=== PATIENT | male | born 1945 | race Caucasian/White ===

== ENCOUNTER 2022-10-24 01:00 | Emergency (ER) | payer MEDICARE ==
[~2022-10-24] VITALS: Ht 182.9 cm; Wt 72.6 kg
--- NOTE | 2022-10-24 01:09 | NUR ---
PT EDIN KIDD. TAKEN TO BED 11
[2022-10-24 01:11] VITALS: BP 154/68; PULSE 89; RESP 22; TEMP 98.1; O2SAT 97
[2022-10-24] MEDS ORDERED: LIDOCAINE 1% 500 MG/ 50 ML VIAL INJ ONE (01:20)
[2022-10-24] MEDS ORDERED: LIDOCAINE MPF 1% 10 ML ONE (01:25)
[2022-10-24] MEDS ORDERED: KETOROLAC 15 MG/ML VIAL IM ONE (01:35)
[2022-10-24] MEDS ORDERED: BACITRACIN OINT 500 UNITS/GM PKT TP ONE (02:40)
[2022-10-24] MEDS ORDERED: oxyCODONE 10 MG TABER PO ONE (02:45)
--- NOTE | 2022-10-24 02:51 | NUR ---
pt CT via [place]
--- NOTE | 2022-10-24 05:00 | NUR ---
VENANCIO MD at bedside re-examining patient.
--- NOTE | 2022-10-24 05:06 | NUR ---
xr at bedside
--- NOTE | 2022-10-24 05:13 | NUR ---
pt to CT via [facility]
--- NOTE | 2022-10-24 05:45 | NUR ---
pt 10 out 10 back pain. ermd made aware with no orders made.
--- NOTE | 2022-10-24 07:21 | NUR ---
Pt report given to Veena BELTRAN. Transfer of care at this time.
--- NOTE | 2022-10-24 07:23 | NUR ---
Report revieved from Marya, RN for transfer of care.
--- NOTE | 2022-10-24 08:52 | NUR ---
Patient was made clean and offered a urinal. Call light is within reach.
--- NOTE | 2022-10-24 09:11 | NUR ---
Patient is reporting an 10/10 pain to hip. ERMD made aware.
--- NOTE | 2022-10-24 09:53 | NUR ---
Dr. Bae evaluating patient at bedside.
[2022-10-24 10:40] VITALS: TEMP 96.5
--- NOTE | 2022-10-24 11:06 | NUR ---
Patient is laying in bed, call light is within reach. All needs met by staff.
[2022-10-24 12:40] VITALS: BP 147/51; PULSE 55; RESP 19; O2SAT 99
--- NOTE | 2022-10-24 12:40 | NUR ---
Patient discharged with v/s stable. Written and verbal after care instructions given. Patient verbalized understanding. [facility] All questions addressed prior to discharge. Advised to follow up with PMD.
--- NOTE | 2022-10-24 13:03 | NUR ---
The patient's care was reviewed and supervised by [facility], RN.
== END 2022-10-24 13:03 | disposition home or self-care (01) ==
LOC: MED 01:00
DX: S01.81XA Laceration without foreign body of other part of head, initial encounter (principal); G20 Parkinson's disease; W01.0XXA Fall on same level from slipping, tripping and stumbling without subsequent striking against object, initial encounter; Y93.89 Activity, other specified; Y92.89 Other specified places as the place of occurrence of the external cause; Y99.8 Other external cause status
CPT/HCPCS: 70450; 72125; 72131; 72170; 72192; 90471; 90715; 96372; 99285; J1885; J2001; Q0092